=== PATIENT | male | born 1975 | race Caucasian/White ===

== ENCOUNTER 2017-11-13 18:46 | Emergency (ER) | payer MEDICAID ==
[2017-11-13] MEDS: LEVALBUTEROL (NEB) 1.25 MG/0.5 ML AMP INH (19:24)
[2017-11-13] MEDS: IPRATROPIUM (NEB) 0.5 MG/2.5 ML AMP INH (19:24)
[2017-11-13] MEDS: SOD CHLORIDE 0.9% 1,000 ML IV (19:35)
[2017-11-13] MEDS: METHYLPREDNISOLONE 125 MG INJ IV (19:35)
== END 2017-11-13 20:24 | disposition home or self-care (01) ==
LOC: FTE 18:46
DX: J45.901 Unspecified asthma with (acute) exacerbation (principal)
CPT/HCPCS: 94644; 96374; 99284-25

== ENCOUNTER 2018-09-30 09:18 | Emergency (ER) | payer MEDICAID ==
[2018-09-30] MEDS: NAPROXEN 500 MG TAB PO (10:21)
[2018-09-30] MEDS: CLINDAMYCIN 300 MG INJ IM (10:22)
== END 2018-09-30 10:25 | disposition home or self-care (01) ==
LOC: FTE 09:18
DX: M70.42 Prepatellar bursitis, left knee (principal); J45.909 Unspecified asthma, uncomplicated; Y93.89 Activity, other specified
CPT/HCPCS: 96372; 99284-25

== ENCOUNTER 2018-12-05 16:22 | Emergency (ER) | payer MEDICAID ==
[2018-12-05] MEDS: IBUPROFEN 800 MG TAB PO (23:08)
[2018-12-05] MEDS: ACETAMINOPHEN 500 MG TAB PO (23:09)
== END 2018-12-05 23:50 | disposition home or self-care (01) ==
LOC: FTE 16:22
DX: L08.9 Local infection of the skin and subcutaneous tissue, unspecified (principal); J45.909 Unspecified asthma, uncomplicated
CPT/HCPCS: 99283; Z7502